=== PATIENT | female | born 1985 | race African-American/Black ===

== ENCOUNTER → 2021-10-28 | Day surgery (SDC) | payer OTHER ==
[2021-10-24 09:28] VITALS: BMI 29.0
[~2021-10-28] MED LIST: INDOMETHACIN 50 MG CAPSULE PO ONE; LACTATED RINGERS SOLUTION 1,000 ML IV SCH; ONDANSETRON 4 MG/2 ML VIAL IVPUSH PRN
[2021-10-28 07:36] LABS: INR 1.07 (0.83-1.09); PROTHROMBIN TIME (PATIENT) 12.3 SEC (9.7-13.0)
[2021-10-28 07:39] LABS: ACTIVATED PTT 27.3 SECONDS (25.2-36.5)
[2021-10-28 11:16] VITALS: RESP 20
[2021-10-28 15:40] VITALS: BP 122/79; PULSE 88; TEMP 98.3
== END | disposition home or self-care (01) ==
LOC: JASU-SURG 04:06
PROVIDERS: ATTEND Obstetrics & Gynecology Maternal & Fetal Medicine
PROC: 0UVC7ZZ Restriction of Cervix, Via Natural or Artificial Opening (ICD-10-PCS; principal; 2021-10-28 08:00)
DX: O34.31 Maternal care for cervical incompetence, first trimester (principal); Z3A.12 12 weeks gestation of pregnancy
CPT/HCPCS: 36415; 85610; 85730; 86850; 86900; 86901; 94760

== ENCOUNTER 2022-04-17 08:10 | Inpatient (IN) | payer OTHER ==
[2022-04-17] MEDS ORDERED: CITRIC ACID/SODIUM CITRATE 30 ML UNIT-DOSE CUP PO ONE (08:51)
[2022-04-17] MEDS ORDERED: DEXTROSE 5%-LACTATED RINGERS 1,000 ML IV SCH (09:00)
[2022-04-17] MEDS ORDERED: ELECTROLYTE-148 SOLN 500 ML IV ONE (09:00)
[2022-04-17] MEDS ORDERED: FENTANYL CITRATE/PF 50 MCG/ML VIAL ONE ×3 (09:30→13:18)
[2022-04-17] MEDS ORDERED: ELECTROLYTE-148 SOLN 1,000 ML IV SCH (09:30)
[2022-04-17] MEDS ORDERED: morphine SULFATE (PF) 1 MG/2 ML SYRINGE ONE (09:30)
[2022-04-17 09:42] VITALS: BMI 34.1
[2022-04-17] MEDS ORDERED: ceFAZolin SODIUM 1 GM VIAL ONE (11:27)
[2022-04-17] MEDS ORDERED: ONDANSETRON 4 MG/2 ML VIAL ONE (11:27)
[2022-04-17] MEDS ORDERED: DEXAMETHASONE SOD PHOSPHATE 4 MG/1 ML VIAL ONE (11:27)
[2022-04-17] MEDS ORDERED: MIDAZOLAM HCL 2 MG/2 ML SINGLE DOSE VIAL ONE (12:50)
[2022-04-17 13:24] LABS: CORD HCO3 26.6 mmHg (20-29); CORD PCO2 77.9 mmHg (30-78); CORD pH 7.152 (7.14-7.44)
[2022-04-17 13:26] LABS: CORD BASE EXCESS -2.4 mmol/L (0-2); CORD HCO3 25.5 mmHg (20-29); CORD PCO2 57.1 mmHg (30-78); CORD pH 7.268 (7.14-7.44)
[2022-04-17] MEDS ORDERED: OXYTOCIN 20 UNITS in 0.9% NS 20 UNIT/1,000 ML INFUS.BAG IV ONE (13:53)
[2022-04-17] MEDS ORDERED: ACETAMINOPHEN 325 MG TABLET (FP) PO PRN (13:55)
[2022-04-17] MEDS: OXYTOCIN 20 UNITS in 0.9% NS 20 UNIT/1,000 ML INFUS.BAG IV SCH ×3 (13:55→20:00)
[2022-04-17] MEDS ORDERED: IBUPROFEN 800 MG/8 ML IJ IVPB PRN (13:58)
[2022-04-17] MEDS: FERROUS SO4 325 MG TABLET (FP) PO SCH (22:15)
[2022-04-18] MEDS: PRENATAL VITAMINS W/ FOLIC ACID TABLET (FP) PO SCH (09:49)
[2022-04-18] MEDS: FERROUS SO4 325 MG TABLET (FP) PO SCH ×2 (09:49→21:45)
[2022-04-18] MEDS: IBUPROFEN 600 MG TABLET (FP) PO PRN ×3 (10:04→21:46)
[2022-04-18] MEDS: SIMETHICONE 80 MG TAB.CHEW (FP) PO PRN ×2 (10:04→21:48)
[2022-04-18 10:25] LABS: BASO % 0.3 % (0-2.0); EOS % 0.1 % (0-4.5); HEMATOCRIT 27.5 % (32.4-45.2); HEMOGLOBIN 8.7 GM/dL (10.7-15.3); LYMPH % 18.5 % (8-40); MCH 21.4 pg (25.7-33.7); MCHC 31.5 g/dl (32.0-36.0); MEAN CELL VOLUME 68.1 fl (80-96); MONO % 4.1 % (3.8-10.2); PLATELET COUNT 157 10^3/uL (134-434); RBC 4.04 M/mm3 (3.60-5.2); WHITE BLOOD COUNT 13.6 K/mm3 (4.0-10.0)
[2022-04-18 10:59] LABS: ANISOCYTOSIS 3+; MACROCYTOSIS 0; PLATELET ESTIMATE DECREASED
[2022-04-18] MEDS ORDERED: BISACODYL 10 MG SUPP.RECT RC PRN (13:55)
[2022-04-19] MEDS: IBUPROFEN 600 MG TABLET (FP) PO PRN ×3 (04:09→22:25)
[2022-04-19] MEDS: PRENATAL VITAMINS W/ FOLIC ACID TABLET (FP) PO SCH (11:19)
[2022-04-19] MEDS: FERROUS SO4 325 MG TABLET (FP) PO SCH ×2 (11:19→22:25)
[2022-04-19] MEDS: SIMETHICONE 80 MG TAB.CHEW (FP) PO PRN ×2 (18:05→22:25)
[2022-04-19] MEDS: OXYTOCIN 20 UNITS in 0.9% NS 20 UNIT/1,000 ML INFUS.BAG IV SCH (20:09)
[2022-04-20 01:53] VITALS: RESP 18
[2022-04-20 08:30] LABS: BASO % 0.9 % (0-2.0); EOS % 3.5 % (0-4.5); HEMATOCRIT 25.7 % (32.4-45.2); HEMOGLOBIN 8.4 GM/dL (10.7-15.3); LYMPH % 27.3 % (8-40); MCH 22.2 pg (25.7-33.7); MCHC 32.7 g/dl (32.0-36.0); MEAN CELL VOLUME 67.9 fl (80-96); MEAN PLT VOLUME 8.2 fl (7.5-11.1); MONO % 5.5 % (3.8-10.2); NEUT % 62.8 % (42.8-82.8); PLATELET COUNT 181 10^3/uL (134-434); RBC 3.78 M/mm3 (3.60-5.2); RDW 15.3 % (11.6-15.6); WHITE BLOOD COUNT 8.4 K/mm3 (4.0-10.0)
[2022-04-20 08:44] VITALS: BP 123/75; PULSE 75; TEMP 97.5
[2022-04-20] MEDS: IBUPROFEN 600 MG TABLET (FP) PO PRN (09:14)
[2022-04-20] MEDS: PRENATAL VITAMINS W/ FOLIC ACID TABLET (FP) PO SCH (09:14)
[2022-04-20] MEDS: SIMETHICONE 80 MG TAB.CHEW (FP) PO PRN (09:14)
[2022-04-20] MEDS: FERROUS SO4 325 MG TABLET (FP) PO SCH (09:14)
== END 2022-04-20 12:05 | disposition home or self-care (01) | DRG 786 ==
LOC: JLDR 08:10 → J3W 15:20
PROVIDERS: ADMIT Obstetrics & Gynecology Maternal & Fetal Medicine; ATTEND Obstetrics & Gynecology Maternal & Fetal Medicine
PROC: 10D00Z1 Extraction of Products of Conception, Low, Open Approach (ICD-10-PCS; principal; 2022-04-17)
PROC: 0UCC7ZZ Extirpation of Matter from Cervix, Via Natural or Artificial Opening (ICD-10-PCS; 2022-04-17)
DX: O34.211 Maternal care for low transverse scar from previous cesarean delivery (principal); O34.33 Maternal care for cervical incompetence, third trimester; N73.6 Female pelvic peritoneal adhesions (postinfective); Z3A.37 37 weeks gestation of pregnancy; Z37.0 Single live birth
CPT/HCPCS: 36415; 36600; 82803; 85025; 88304-TC; 88307-TC

== ENCOUNTER 2025-01-05 06:10 | Day surgery (SDC) | payer OTHER ==
[2025-01-04 14:45] VITALS: BMI 27.9
[2025-01-05 06:45] LABS: ABSOLUTE IMMATURE GRANULOCYTES 0.04 x10^3/uL (0.0-0.031); BASOPHILS # 0.04 x10^3/uL (0.01-0.08); EOSINOPHIL % 0.3 % (0.7-5.8); EOSINOPHILS # 0.02 x10^3/uL (0.04-0.36); MCHC 31.5 g/dl (32.2-35.5); MEAN CELL VOLUME 70.1 fl (79.4-94.8); MEAN PLT VOLUME 10.1 fl (9.4-12.3); MONOCYTE # 0.32 x10^3/uL (0.24-0.86); MONOCYTE % 5.0 % (4.7-12.5); RDW 14.9 % (12.1-16.8)
[2025-01-05] MEDS ORDERED: PROPOFOL 60 ML ONE (07:52)
[2025-01-05] MEDS ORDERED: FAMOTIDINE 20 MG/50 ML IVPB 20 MG/50 ML MG IVPB ONE (08:56)
[2025-01-05] MEDS ORDERED: ONDANSETRON 4 MG/2 ML VIAL ONE (09:10)
[2025-01-05] MEDS ORDERED: PROPOFOL 20 ML ONE (09:11)
[2025-01-05] MEDS ORDERED: ONDANSETRON 4 MG/2 ML VIAL IVPUSH PRN (09:48)
[2025-01-05] MEDS: INDOMETHACIN 50 MG CAPSULE PO ONE (10:49)
[2025-01-05] MEDS: LACTATED RINGERS SOLUTION 1,000 ML IV SCH (11:10)
[2025-01-05 11:48] VITALS: RESP 20
[2025-01-05 16:52] VITALS: TEMP 97.2
[2025-01-05 17:34] VITALS: BP 126/76; PULSE 78
== END 2025-01-05 17:30 | disposition home or self-care (01) ==
LOC: JASU-SURG 06:10
PROVIDERS: ATTEND Obstetrics & Gynecology Maternal & Fetal Medicine
PROC: 0UVC7ZZ Restriction of Cervix, Via Natural or Artificial Opening (ICD-10-PCS; principal; 2025-01-05 08:00)
DX: N88.3 Incompetence of cervix uteri (principal); Z3A.12 12 weeks gestation of pregnancy
CPT/HCPCS: 36415; 85025; 86850; 86900; 86901; 94760